=== PATIENT | female | born 1945 | race Caucasian/White ===

== ENCOUNTER 2024-05-03 08:39 | Emergency (ER) | payer MEDICARE ==
[~2024-05-03] VITALS: Ht 152.4 cm; Wt 60.9 kg
[2024-05-03 10:17] LABS: BASOPHILS # (AUTO) 0.1 X10'3 (0-0.2); EOSINOPHILS # (AUTO) 0.3 X10'3 (0-0.9); EOSINOPHILS % (AUTO) 3.7 % (0-6); HEMATOCRIT 40.8 % (35.0-45.0); HEMOGLOBIN 13.6 g/dl (12.0-16.0); LYMPHOCYTES # (AUTO) 2.5 X10'3 (1.1-4.8); LYMPHOCYTES % (AUTO) 30.3 % (21-51); MEAN CORPUSCULAR HEMOGLOBIN 30.8 PG (27.0-31.0); MEAN CORPUSCULAR HGB CONC 33.4 g/dL (33.0-36.5); MEAN CORPUSCULAR VOLUME 92.2 FL (78-98); MEAN PLATELET VOLUME 7.9 FL (7.4-10.4); MONOCYTES # (AUTO) 0.7 X10'3 (0-0.9); NEUTROPHILS # (AUTO) 4.8 X10'3 (1.8-7.7); PLATELET COUNT 290 X10'3 (140-440); RED BLOOD COUNT 4.43 X10'6 (4.20-5.60); RED CELL DISTRIBUTION WIDTH 13.8 % (11.5-14.5); WHITE BLOOD COUNT 8.3 X10'3 (4.5-11.0)
[2024-05-03 10:31] LABS: ALANINE AMINOTRANSFERASE 21 U/L (12-78); ALBUMIN/GLOBULIN RATIO 1.1 (1.1-1.5); ALKALINE PHOSPHATASE 79 IU/L (46-116); ANION GAP 10 (8-16); ASPARTATE AMINO TRANSFERASE 13 U/L (10-37); BILIRUBIN,TOTAL 0.5 MG/DL (0.1-1.0); BLOOD UREA NITROGEN 13 MG/DL (7-18); BUN/CREATININE RATIO 18.3 (10.0-20.0); CALCIUM 9.3 MG/DL (8.5-10.1); CHLORIDE 103 MMOL/L (99-107); CREATININE 0.71 MG/DL (0.40-0.90); GLUCOSE 90 MG/DL (70-104); POTASSIUM 3.6 MMOL/L (3.5-5.1); SODIUM 141 MMOL/L (135-145); TOTAL CARBON DIOXIDE 28.2 MMOL/L (24-32); TOTAL PROTEIN 7.8 G/DL (6.4-8.2); eCRCL 46 ML/MIN; eGFR 79 ML/MIN
[2024-05-03 12:11] VITALS: BP 125/90; PULSE 76; RESP 14; TEMP 97; O2SAT 98
== END 2024-05-03 12:14 | disposition home or self-care (01) ==
LOC: ER 08:39 → MERGE 08:39 → ER 12:14
DX: M54.9 Dorsalgia, unspecified (principal); R07.9 Chest pain, unspecified; Z88.8 Allergy status to other drugs, medicaments and biological substances
CPT/HCPCS: 36415; 71045; 80053; 84484; 85025; 93005; 99285

== ENCOUNTER 2024-05-08 18:59 | Inpatient (IN) | payer MEDICARE ==
[~2024-05-08] VITALS: Ht 152.4 cm; Wt 62.9 kg
[2024-05-08 19:49] LABS: BASOPHILS % (AUTO) 0.2 % (0-1); EOSINOPHILS % (AUTO) 0 % (0-6); HEMATOCRIT 37.2 % (35.0-45.0); HEMOGLOBIN 12.4 g/dl (12.0-16.0); LYMPHOCYTES # (AUTO) 1.1 X10'3 (1.1-4.8); LYMPHOCYTES % (AUTO) 6.1 % (21-51); MEAN CORPUSCULAR HEMOGLOBIN 30.5 PG (27.0-31.0); MEAN CORPUSCULAR HGB CONC 33.4 g/dL (33.0-36.5); MEAN CORPUSCULAR VOLUME 91.1 FL (78-98); MEAN PLATELET VOLUME 7.6 FL (7.4-10.4); MONOCYTES # (AUTO) 1.7 X10'3 (0-0.9); MONOCYTES % (AUTO) 9.6 % (2-12); NEUTROPHILS # (AUTO) 15.3 X10'3 (1.8-7.7); NEUTROPHILS % (AUTO) 84.1 % (42-75); PLATELET COUNT 255 X10'3 (140-440); RED BLOOD COUNT 4.08 X10'6 (4.20-5.60); WHITE BLOOD COUNT 18.1 X10'3 (4.5-11.0)
[2024-05-08 20:04] LABS: ALANINE AMINOTRANSFERASE 41 U/L (12-78); ALBUMIN 3.3 G/DL (3.4-5.0); ALBUMIN/GLOBULIN RATIO 0.8 (1.1-1.5); ALKALINE PHOSPHATASE 114 IU/L (46-116); ANION GAP 11 (8-16); ASPARTATE AMINO TRANSFERASE 28 U/L (10-37); BLOOD UREA NITROGEN 14 MG/DL (7-18); BUN/CREATININE RATIO 14.6 (10.0-20.0); CALCIUM 9.1 MG/DL (8.5-10.1); CHLORIDE 101 MMOL/L (99-107); CREATININE 0.96 MG/DL (0.40-0.90); GLUCOSE 140 MG/DL (70-104); LIPASE 22 U/L (16-77); POTASSIUM 3.5 MMOL/L (3.5-5.1); SODIUM 135 MMOL/L (135-145); TOTAL CARBON DIOXIDE 22.7 MMOL/L (24-32); TOTAL PROTEIN 7.3 G/DL (6.4-8.2); eCRCL 34 ML/MIN; eGFR 56 ML/MIN
[2024-05-08 20:40] LABS: URINE HCG NEGATIVE (NEG)
[2024-05-08 20:48] LABS: BILIRUBIN,URINE NEGATIVE (Neg); GLUCOSE, URINE NEGATIVE (Neg); KETONES,URINE 15 mg/dl (Neg); LEUKOCYTE ESTERASE ,URINE SMALL (Neg); NITRITES, URINE POSITIVE (Neg); OCCULT BLOOD,URINE TRACE-INTACT (Neg); PH,URINE 6.5 (4.8-8.0); PROTEIN,URINE >=300 mg/dl (Neg)
[2024-05-08 20:58] LABS: UA COLLECTION TYPE CLN CATCH MIDSTREAM
[2024-05-08 20:59] LABS: CLARITY,URINE SLIGHTLY CLOUDY (Clear); COLOR,URINE DARK YELLOW (Yellow)
[2024-05-08 21:00] LABS: BACTERIA,URINE 2+ /HPF (Neg); MUCUS STRANDS FEW /LPF (Neg); RENAL CELLS, URINE FEW /HPF; SQUAMOUS EPITHELIAL CELL,UR FEW /LPF (FEW); WBC,URINE 50-100 /HPF (0-4)
[2024-05-08 21:17] LABS: APTT 29 SECONDS (22-32); INR 1.2 INR; PROTHROMBIN TIME 12.4 SECONDS (9.0-12.0)
[2024-05-08] MEDS: ondansetron/PF 4mg/2ml inj IV ONE (22:11)
[2024-05-08] MEDS: acetaminophen 1,000mg/100ml IV 100 ML IV ONE (22:12)
[2024-05-08] MEDS: CefTRIAXone 2gm/D5W 50ml BAG 50 ML IV ONE (22:38)
[2024-05-08] MEDS: normal saline 1000ml 1,000 ML IV ONE (22:38)
[2024-05-08] MEDS ORDERED: magnesium sulf-water 2g/50mL 50 ML IV PRN (23:15)
[2024-05-08] MEDS ORDERED: magnesium hydroxide 30ml (MOM) UD suspension PO PRN (23:15)
[2024-05-08] MEDS ORDERED: magnesium Cl slow-release 64mg tablet PO PRN (23:15)
[2024-05-08] MEDS ORDERED: magnesium sulf-water 4G/100mL 100 ML IV PRN (23:15)
[2024-05-08] MEDS ORDERED: potassium Cl 20 mEq SR tablet PO PRN ×2 (23:15)
[2024-05-08] MEDS ORDERED: mag hydrox/Alum hydrox/simeth 30ml oral suspension PO PRN (23:15)
[2024-05-08] MEDS ORDERED: normal saline 1000ml 1,000 ML IV SCH (23:15)
[2024-05-08] MEDS ORDERED: potassium Cl 40MEQ/1/2NS 520ml 520 ML IV PRN (23:15)
[2024-05-08] MEDS: normal saline 500ml IV soln 500 ML IV ONE (23:59)
[2024-05-09] MEDS ORDERED: DEXTROSE 15 GM of carb/4 tabs (each vial/BOTTLE has 4 tablets) PO PRN ×2 (00:05)
[2024-05-09] MEDS ORDERED: glucagon, human recombinant 1mg kit SUBCUT PRN (00:05)
[2024-05-09] MEDS ORDERED: dextrose 50%-water 50ml dispensing syringe IV PRN ×2 (00:05)
[2024-05-09] MEDS: normal saline 1000ml 1,000 ML IV SCH (00:28)
[2024-05-09] MEDS ORDERED: LEVO100T PO (01:01)
[2024-05-09 01:25] VITALS: BP 124/48; PULSE 104; RESP 18; TEMP 97.9; O2SAT 97
[2024-05-09 06:00] VITALS: BP 134/63; PULSE 107; RESP 17; TEMP 98.2; O2SAT 96
[2024-05-09 07:03] LABS: BASOPHILS % (AUTO) 0.3 % (0-1); EOSINOPHILS % (AUTO) 0.1 % (0-6); HEMATOCRIT 33.5 % (35.0-45.0); LYMPHOCYTES # (AUTO) 1.2 X10'3 (1.1-4.8); LYMPHOCYTES % (AUTO) 7.4 % (21-51); MEAN CORPUSCULAR HEMOGLOBIN 29.9 PG (27.0-31.0); MEAN CORPUSCULAR HGB CONC 32.8 g/dL (33.0-36.5); MEAN CORPUSCULAR VOLUME 91.2 FL (78-98); MEAN PLATELET VOLUME 7.8 FL (7.4-10.4); MONOCYTES # (AUTO) 1.3 X10'3 (0-0.9); NEUTROPHILS # (AUTO) 13.4 X10'3 (1.8-7.7); NEUTROPHILS % (AUTO) 84.2 % (42-75); PLATELET COUNT 226 X10'3 (140-440); RED BLOOD COUNT 3.68 X10'6 (4.20-5.60); RED CELL DISTRIBUTION WIDTH 13.8 % (11.5-14.5); WHITE BLOOD COUNT 15.9 X10'3 (4.5-11.0)
[2024-05-09 07:17] LABS: ALANINE AMINOTRANSFERASE 45 U/L (12-78); ALBUMIN 2.7 G/DL (3.4-5.0); ALBUMIN/GLOBULIN RATIO 0.7 (1.1-1.5); ALKALINE PHOSPHATASE 120 IU/L (46-116); ANION GAP 11 (8-16); ASPARTATE AMINO TRANSFERASE 36 U/L (10-37); BILIRUBIN,TOTAL 0.7 MG/DL (0.1-1.0); BLOOD UREA NITROGEN 12 MG/DL (7-18); BUN/CREATININE RATIO 12.2 (10.0-20.0); CALCIUM 8.3 MG/DL (8.5-10.1); CHLORIDE 104 MMOL/L (99-107); CREATININE 0.98 MG/DL (0.40-0.90); GLUCOSE 114 MG/DL (70-104); MAGNESIUM 1.8 MG/DL (1.5-2.4); POTASSIUM 3.3 MMOL/L (3.5-5.1); SODIUM 138 MMOL/L (135-145); TOTAL CARBON DIOXIDE 23.5 MMOL/L (24-32); TOTAL PROTEIN 6.4 G/DL (6.4-8.2); eCRCL 33 ML/MIN; eGFR 55 ML/MIN
[2024-05-09 08:00] LABS: HEMOGLOBIN A1C 5.9 % (4.5-6.2)
[2024-05-09] MEDS: K and/or MAG REPLACEMENT MC SCH (08:00)
[2024-05-09] MEDS: INSULIN LISPRO 100 UNIT/ML INSULN.PEN MULTI-DOSE SQ SCH (09:00)
[2024-05-09 10:00] VITALS: BP 129/76; PULSE 100; RESP 19; TEMP 97.9; O2SAT 94
[2024-05-09] MEDS: docusate sod 100mg capsule PO SCH (11:22)
[2024-05-09] MEDS: VANCOMYCIN 1,500MG in normal saline IV soln 300 ML IV ONE (11:22)
[2024-05-09] MEDS: ondansetron/PF 4mg/2ml inj IV PRN (11:30)
[2024-05-09] MEDS ORDERED: POTASSIUM CHLORIDE 20 MEQ/15 ML oral solution PO PRN (11:49)
[2024-05-09] MEDS: POTASSIUM CHLORIDE 20 MEQ/15 ML oral solution PO PRN (12:01)
[2024-05-09] MEDS: acetaminophen 325mg tablet PO PRN (12:01)
[2024-05-09] MEDS ORDERED: ADV50250 IH (14:14)
[2024-05-09] MEDS ORDERED: LOSA50TA64 PO (14:24)
[2024-05-09] MEDS ORDERED: ROSU10TA72 PO (14:24)
[2024-05-09] MEDS ORDERED: MONT-40 PO (14:24)
[2024-05-09 18:00] VITALS: BP 125/66; PULSE 87; RESP 15; TEMP 97.9; O2SAT 96
[2024-05-09] MEDS: piperacillin/tazo 3.375gm/50ml 50 ML IV SCH (19:43)
[2024-05-09] MEDS ORDERED: CefTRIAXone/D5W-Rocephin 1gm 50 ML IV SCH (20:00)
[2024-05-09] MEDS: enoxaparin 40mg/0.4ml syringe SQ SCH (20:00)
[2024-05-09] MEDS: insulin glargine (Lantus) pen - multi-dose SQ SCH (21:00)
[2024-05-09 22:00] VITALS: BP 135/69; PULSE 94; RESP 16; TEMP 99.4; O2SAT 94
[2024-05-10] VITALS (9 sets, daily range): BP systolic 119–141; BP diastolic 69–77; PULSE 80–96; RESP 16; TEMP 98–99.3; O2SAT 93–97
[2024-05-10 06:42] LABS: BASOPHILS % (AUTO) 0.3 % (0-1); EOSINOPHILS # (AUTO) 0.1 X10'3 (0-0.9); EOSINOPHILS % (AUTO) 0.7 % (0-6); HEMATOCRIT 30.9 % (35.0-45.0); HEMOGLOBIN 10.2 g/dl (12.0-16.0); LYMPHOCYTES # (AUTO) 1.6 X10'3 (1.1-4.8); LYMPHOCYTES % (AUTO) 13.2 % (21-51); MEAN CORPUSCULAR HEMOGLOBIN 30.4 PG (27.0-31.0); MEAN CORPUSCULAR HGB CONC 33.1 g/dL (33.0-36.5); MEAN CORPUSCULAR VOLUME 91.9 FL (78-98); MEAN PLATELET VOLUME 7.9 FL (7.4-10.4); MONOCYTES # (AUTO) 1.1 X10'3 (0-0.9); MONOCYTES % (AUTO) 8.9 % (2-12); NEUTROPHILS # (AUTO) 9.5 X10'3 (1.8-7.7); NEUTROPHILS % (AUTO) 76.9 % (42-75); PLATELET COUNT 206 X10'3 (140-440); RED BLOOD COUNT 3.37 X10'6 (4.20-5.60); RED CELL DISTRIBUTION WIDTH 13.7 % (11.5-14.5); WHITE BLOOD COUNT 12.4 X10'3 (4.5-11.0)
[2024-05-10 06:56] LABS: ALANINE AMINOTRANSFERASE 57 U/L (12-78); ALBUMIN 2.5 G/DL (3.4-5.0); ALBUMIN/GLOBULIN RATIO 0.7 (1.1-1.5); ALKALINE PHOSPHATASE 139 IU/L (46-116); ANION GAP 10 (8-16); ASPARTATE AMINO TRANSFERASE 46 U/L (10-37); BILIRUBIN,TOTAL 0.7 MG/DL (0.1-1.0); BLOOD UREA NITROGEN 10 MG/DL (7-18); BUN/CREATININE RATIO 9.1 (10.0-20.0); CALCIUM 7.9 MG/DL (8.5-10.1); CHLORIDE 107 MMOL/L (99-107); GLUCOSE 107 MG/DL (70-104); POTASSIUM 3.4 MMOL/L (3.5-5.1); SODIUM 138 MMOL/L (135-145); TOTAL CARBON DIOXIDE 21.5 MMOL/L (24-32); TOTAL PROTEIN 6.1 G/DL (6.4-8.2); eCRCL 30 ML/MIN; eGFR 48 ML/MIN
[2024-05-10] MEDS: calcium carbonate/vitamin D3 tablet PO SCH (10:10)
[2024-05-10] MEDS ORDERED: magnesium sulf-water 4G/100mL 100 ML IV PRN (10:50)
[2024-05-10] MEDS ORDERED: potassium Cl 20 mEq SR tablet PO PRN ×2 (10:50)
[2024-05-10] MEDS ORDERED: magnesium sulf-water 2g/50mL 50 ML IV PRN (10:50)
[2024-05-10] MEDS ORDERED: potassium Cl 40MEQ/1/2NS 520ml 520 ML IV PRN (10:50)
[2024-05-10] MEDS: levoTHYROXINE 100mcg tablet PO ONE (10:55)
[2024-05-10] MEDS ORDERED: vancomycin/NS 1 GM ADD-VANTAGE 250 ML IV SCH (11:00)
[2024-05-10] MEDS ORDERED: POTASSIUM CHLORIDE 20 MEQ/15 ML oral solution PO PRN ×2 (13:50)
[2024-05-10] MEDS: K and/or MAG REPLACEMENT MC SCH (20:00)
[2024-05-10] MEDS: budesonide 0.5mg/2ml UD nebule IH SCH (20:05)
[2024-05-10] MEDS: albuterol 2.5 MG/3 ML nebule NEB SCH (20:06)
[2024-05-10] MEDS: atorvastatin 20mg tablet PO SCH (21:22)
[2024-05-10] MEDS: montelukast 10mg tablet PO SCH (21:22)
[2024-05-10] MEDS: losartan 50mg tablet PO SCH (21:23)
[2024-05-11] VITALS (7 sets, daily range): BP systolic 137; BP diastolic 56; PULSE 64–79; RESP 16–20; TEMP 98.4; O2SAT 93–98
[2024-05-11] MEDS: magnesium Cl slow-release 64mg tablet PO PRN (01:53)
[2024-05-11 07:42] LABS: BASOPHILS % (AUTO) 0.4 % (0-1); EOSINOPHILS # (AUTO) 0.2 X10'3 (0-0.9); EOSINOPHILS % (AUTO) 2.5 % (0-6); HEMATOCRIT 29.4 % (35.0-45.0); HEMOGLOBIN 9.6 g/dl (12.0-16.0); LYMPHOCYTES # (AUTO) 1.6 X10'3 (1.1-4.8); LYMPHOCYTES % (AUTO) 17.3 % (21-51); MEAN CORPUSCULAR HEMOGLOBIN 30.4 PG (27.0-31.0); MEAN CORPUSCULAR HGB CONC 32.8 g/dL (33.0-36.5); MEAN CORPUSCULAR VOLUME 92.6 FL (78-98); MEAN PLATELET VOLUME 7.7 FL (7.4-10.4); MONOCYTES % (AUTO) 10.6 % (2-12); NEUTROPHILS # (AUTO) 6.3 X10'3 (1.8-7.7); NEUTROPHILS % (AUTO) 69.2 % (42-75); PLATELET COUNT 221 X10'3 (140-440); RED BLOOD COUNT 3.18 X10'6 (4.20-5.60); RED CELL DISTRIBUTION WIDTH 13.9 % (11.5-14.5); WHITE BLOOD COUNT 9.2 X10'3 (4.5-11.0)
[2024-05-11] MEDS: levoTHYROXINE 100mcg tablet PO SCH (08:00)
[2024-05-11 08:08] LABS: ALANINE AMINOTRANSFERASE 52 U/L (12-78); ALBUMIN 2.4 G/DL (3.4-5.0); ALBUMIN/GLOBULIN RATIO 0.6 (1.1-1.5); ALKALINE PHOSPHATASE 158 IU/L (46-116); ANION GAP 12 (8-16); ASPARTATE AMINO TRANSFERASE 29 U/L (10-37); BILIRUBIN,TOTAL 0.5 MG/DL (0.1-1.0); BLOOD UREA NITROGEN 7 MG/DL (7-18); BUN/CREATININE RATIO 6.7 (10.0-20.0); CALCIUM 8.6 MG/DL (8.5-10.1); CHLORIDE 109 MMOL/L (99-107); CREATININE 1.04 MG/DL (0.40-0.90); GLUCOSE 98 MG/DL (70-104); MAGNESIUM 2.1 MG/DL (1.5-2.4); POTASSIUM 3.2 MMOL/L (3.5-5.1); SODIUM 143 MMOL/L (135-145); TOTAL CARBON DIOXIDE 21.8 MMOL/L (24-32); TOTAL PROTEIN 6.1 G/DL (6.4-8.2); eCRCL 32 ML/MIN; eGFR 51 ML/MIN
[2024-05-11] MEDS: potassium Cl 20 mEq SR tablet PO PRN (14:17)
[2024-05-11] MEDS: LIDOcaine 5% patch TP SCH (16:19)
[2024-05-11] MEDS: acetaminophen 325mg tablet PO PRN (17:35)
[2024-05-11] MEDS: ferrous sulfate 325mg tablet PO SCH (20:49)
[2024-05-12 05:36] LABS: BASOPHILS % (AUTO) 0.5 % (0-1); EOSINOPHILS # (AUTO) 0.2 X10'3 (0-0.9); EOSINOPHILS % (AUTO) 2.7 % (0-6); HEMATOCRIT 30.4 % (35.0-45.0); HEMOGLOBIN 9.9 g/dl (12.0-16.0); LYMPHOCYTES # (AUTO) 1.7 X10'3 (1.1-4.8); LYMPHOCYTES % (AUTO) 19.5 % (21-51); MEAN CORPUSCULAR HGB CONC 32.7 g/dL (33.0-36.5); MEAN CORPUSCULAR VOLUME 91.7 FL (78-98); MEAN PLATELET VOLUME 7.6 FL (7.4-10.4); MONOCYTES # (AUTO) 1.1 X10'3 (0-0.9); MONOCYTES % (AUTO) 12.4 % (2-12); NEUTROPHILS # (AUTO) 5.7 X10'3 (1.8-7.7); NEUTROPHILS % (AUTO) 64.9 % (42-75); PLATELET COUNT 260 X10'3 (140-440); RED BLOOD COUNT 3.32 X10'6 (4.20-5.60); RED CELL DISTRIBUTION WIDTH 13.8 % (11.5-14.5); WHITE BLOOD COUNT 8.8 X10'3 (4.5-11.0)
[2024-05-12 05:53] LABS: ALANINE AMINOTRANSFERASE 48 U/L (12-78); ALBUMIN 2.6 G/DL (3.4-5.0); ALBUMIN/GLOBULIN RATIO 0.7 (1.1-1.5); ALKALINE PHOSPHATASE 204 IU/L (46-116); ANION GAP 10 (8-16); ASPARTATE AMINO TRANSFERASE 21 U/L (10-37); BILIRUBIN,TOTAL 0.4 MG/DL (0.1-1.0); BLOOD UREA NITROGEN 6 MG/DL (7-18); CALCIUM 9.3 MG/DL (8.5-10.1); CHLORIDE 106 MMOL/L (99-107); GLUCOSE 92 MG/DL (70-104); MAGNESIUM 2.1 MG/DL (1.5-2.4); POTASSIUM 3.3 MMOL/L (3.5-5.1); SODIUM 140 MMOL/L (135-145); TOTAL CARBON DIOXIDE 23.6 MMOL/L (24-32); TOTAL PROTEIN 6.5 G/DL (6.4-8.2); eCRCL 33 ML/MIN; eGFR 53 ML/MIN
[2024-05-12 06:00] VITALS: BP 149/71; PULSE 67; RESP 16; TEMP 97.8; O2SAT 90
[2024-05-12 07:19] VITALS: PULSE 75; RESP 16; O2SAT 98
[2024-05-12 07:32] VITALS: PULSE 71; RESP 16
[2024-05-12 08:00] VITALS: RESP 16; O2SAT 90
[2024-05-12] MEDS: pantoprazole 40mg Tablet.DR PO SCH (08:15)
[2024-05-12] MEDS ORDERED: VANCOMYCIN LEVEL IV ONE (10:30)
[2024-05-12] MEDS: potassium Cl 20 mEq SR tablet PO PRN (12:31)
== END 2024-05-12 14:03 | disposition home or self-care (01) | DRG 872 ==
LOC: ER 18:59 → ED HOLD 23:24 → ORTHO 4S 05-09 01:30
PROVIDERS: ADMIT Internal Medicine Pulmonary Disease; ATTEND Nurse Practitioner Family
DX: A41.9 Sepsis, unspecified organism (principal); N39.0 Urinary tract infection, site not specified; E03.9 Hypothyroidism, unspecified; I10 Essential (primary) hypertension; E83.51 Hypocalcemia; J45.909 Unspecified asthma, uncomplicated; E11.9 Type 2 diabetes mellitus without complications; E78.5 Hyperlipidemia, unspecified; Z88.2 Allergy status to sulfonamides; Z88.1 Allergy status to other antibiotic agents
CPT/HCPCS: 36415; 74176; 80053; 81001; 81025; 82948; 83036; 83605; 83690; 83735; 84145; 85025; 85610; 85730; 87040; 87077; 87081; 87088; 87186; 94640; 94760; 96365; 96375; 97161; 97530; 99285; A6258; G0378; J0131; J0696; J1650; J1815; J2405; J2543; J3370; J7030; J7040

== ENCOUNTER 2024-08-23 14:27 | Emergency (ER) | payer MEDICARE ==
[~2024-08-23] VITALS: Ht 152.4 cm; Wt 58.2 kg
[~2024-08-23 14:27] MED LIST: ADV50250 IH; LEVO100T PO; LOSA50TA64 PO; MONT-40 PO; ROSU10TA72 PO
[2024-08-23 14:42] VITALS: BP 162/74; PULSE 78; RESP 16; O2SAT 98
[2024-08-23 15:03] LABS: BILIRUBIN,URINE NEGATIVE (Neg); CLARITY,URINE CLEAR (Clear); COLOR,URINE YELLOW (Yellow); GLUCOSE, URINE NEGATIVE (Neg); KETONES,URINE NEGATIVE (Neg); LEUKOCYTE ESTERASE ,URINE SMALL (Neg); NITRITES, URINE NEGATIVE (Neg); OCCULT BLOOD,URINE NEGATIVE (Neg); PROTEIN,URINE NEGATIVE (Neg); UROBILINOGEN,URINE 0.2 E.U/dL (0.2-1.0)
[2024-08-23 15:20] LABS: BACTERIA,URINE FEW /HPF (Neg); MUCUS STRANDS FEW /LPF (Neg); RBC,URINE 0-2 /HPF (0-2); SQUAMOUS EPITHELIAL CELL,UR FEW /LPF (FEW); UA COLLECTION TYPE CLN CATCH MIDSTREAM
[2024-08-23 15:21] LABS: RENAL CELLS, URINE FEW /HPF
[2024-08-23] MEDS ORDERED: CEPH-585 PO (15:36)
[2024-08-23] MEDS: CefTRIAXone 1000mg IM Kit (w/lidocaine diluent) IM ONE (16:04)
[2024-08-23 16:22] VITALS: TEMP 98
== END 2024-08-23 16:27 | disposition home or self-care (01) ==
LOC: ER 14:28
DX: N39.0 Urinary tract infection, site not specified (principal); Z88.2 Allergy status to sulfonamides; Z88.1 Allergy status to other antibiotic agents; Z79.52 Long term (current) use of systemic steroids; Z79.899 Other long term (current) drug therapy
CPT/HCPCS: 81001; 87088; 96372; 99283; J0696

== ENCOUNTER 2025-07-04 22:22 | Emergency (ER) | payer MEDICARE ==
[~2025-07-04] VITALS: Ht 152.4 cm; Wt 55.7 kg
[~2025-07-04 22:22] MED LIST changes: -ROSU10TA72 PO; +ROSU10TA98 PO
[2025-07-04] MEDS ORDERED: METH4TAB81 PO (23:42)
--- NOTE | 2025-07-04 23:42 | Physician Documentation ---
History of Present Illness ~ Chief Complaint: Allergic Reaction Stated Complaint: HIVES Time Seen by MD: 23:38 Primary Medical Doctor: Dr Hoang HPI Suspected allergic reaction secondary to cefdinir. This is pts second episode. Reports urticaria type rash with itching to behind both ears, both trunk. No jeff shortness of breath or stridor. Has been taking antihistamine throughout the day without significant resolution.. Medication Reconciliation Allergies: Coded Allergies: nitrofurantoin (Verified Allergy, Unknown, 08/23/24) VOMITING sulfamethoxazole (Unverified Allergy, Unknown, 08/23/24) trimethoprim (Unverified Allergy, Unknown, 08/23/24) Uncoded Allergies: SULFA (Allergy, Mild, 05/08/24) GENERALIZED PAIN Scheduled Fluticasone/Salmeterol* (Advair 250-50 Diskus*), 1 PUFF IH HS, (Reported) Losartan Potassium (Losartan Potassium), 1 TAB PO HS, (Reported) Methylprednisolone (Medrol Dosepak), 4 MG PO DAILY Montelukast Sodium (Montelukast Sodium), 1 TAB PO HS, (Reported) Rosuvastatin Calcium (Rosuvastatin Calcium), 1 TAB PO HS, (Reported) Miscellaneous Medications Levothyroxine Sodium (Synthroid), 100 MCG PO, (Reported) Past Medical History Patient History: Cervical cancer MOTHER, Onset:30s - 40 FH: chronic kidney disease brother FH: heart disease FATHER MOTHER FH: stroke FATHER MOTHER Alcohol Use: Other Drug Use: none Lives with: Spouse Lives In: Home Occupation: retired Review of Systems All Other Systems at this time: Reviewed and Negative Constitutional: Reports: see HPI Respiratory: Reports: see HPI Integumentary: Reports: see HPI Physical Exam Vital Signs: RN Vital Signs have been reviewed: Yes, Temperature: 97.6, Source: Oral, Heart Rate: 74, Respiratory Rate: 14, BP: 141/72, Pulse Oximetry: 97, Weight: 55.680 Oxygen Flow Rate: 0 General Appearance: alert, WD/WN, mild distress EENT: normal ENT inspection; No: nasal swelling Oropharynx/Lips: normal inspection; No: lips edematous, tongue edematous Airway: patent Neck: normal inspection Cardiovascular: normal peripheral pulses Respiratory: lungs clear Chest: no accessory muscle use Gastrointestinal: non-tender Extremities: normal range of motion Neurologic: oriented x4, scheduler conveyor II-XII nml as tested Psychiatric: normal mood/affect Skin: normal color, warm/dry, rash Rash Location: ears, chest Progress Results/Orders Results/Orders Completed Orders - BETSEY LOPEZ Triamcinolone Acet 40mg/Ml Inj (Kenalog- (07/04/25 23:40) Triamcinolone Acet 40mg/Ml Inj (Kenalog- (07/04/25 23:45) Vital Signs 07/04/25 07/05/25 22:27 00:10 Temp 97.6 98.6 Pulse 74 70 Resp 14 18 B/P (MAP) 141/72 140/70 Pulse Ox 97 99 O2 Flow Rate 0 Medical Decision Making Additional information obtaine: family Findings 80-year-old female with a 2nd episode this one much more escalated in the initial with 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 No respiratory involvement yet shared decision-making to begin corticosteroid therapy. Homero in the emergency department received 40 mg of Kenalog. She will be discharged with a low-dose Medrol pack and a follow up with the primary care physician. Recommendations are to note cefdinir as a known allergy/to consider other cephalosporins also. Discharged in the emergency department without clinical suspicion of angioedema and/or anaphylaxis. Differential Dx:Considerations: Include: Anaphylaxis, Angioedema, Bronchospasm, Contact dermatitis, Drug reaction, Urticaria Departure Disposition: 01 HOME / SELF CARE / HOMELESS Impression: Primary Impression: Acute allergic reaction Qualified Codes: T78.40XA - Allergy, unspecified, initial encounter Discharge Instructions: Hives, [id number] Additional Instructions: Please obtain prescriptions as directed and begin as directed. Please make follow up appointment with your Primary care physician and advised of likely allergies the Cefdinir. Please return to the emergency department as needed. Referrals: NO PRIMARY CARE PROVIDER (PCP) Prescriptions Methylprednisolone (Medrol Dosepak) 4 Mg Tab.ds.pk 4 MG PO DAILY, #1 TAB 1 dose pack per packaging Prov: BETSEY LOPEZ 07/04/25 Education Educated: Patient, Family Educated regarding: diagnosis, treatment, prognosis Signature Scribe Signature: . Attestation: . BETSEY LOPEZ Jul 04, 2025 23:42
[2025-07-05] MEDS: triamcinolone acetonide 40mg/ml inj IM ONE ×2 (00:04)
[2025-07-05 00:10] VITALS: BP 140/70; PULSE 70; RESP 18; TEMP 98.6; O2SAT 99
== END 2025-07-05 00:12 | disposition home or self-care (01) ==
LOC: ER 22:23
DX: T78.40XA Allergy, unspecified, initial encounter (principal); Z88.1 Allergy status to other antibiotic agents; Z88.2 Allergy status to sulfonamides; Z79.899 Other long term (current) drug therapy; X58.XXXA Exposure to other specified factors, initial encounter
CPT/HCPCS: 96372; 99283; J3301